=== PATIENT | male | born 2000 | race Caucasian/White ===

== ENCOUNTER 2020-07-19 20:24 | Emergency (ER) | payer OTHER ==
[~2020-07-19] VITALS: Ht 195.6 cm; Wt 90.9 kg
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
[2020-07-19 22:29] VITALS: BP 151/72
== END 2020-07-19 22:30 | disposition home or self-care (01) ==
LOC: M ED 20:24
DX: S16.1XXA Strain of muscle, fascia and tendon at neck level, initial encounter (principal); M54.9 Dorsalgia, unspecified; M25.512 Pain in left shoulder; V49.40XA Driver injured in collision with unspecified motor vehicles in traffic accident, initial encounter; F17.200 Nicotine dependence, unspecified, uncomplicated

== ENCOUNTER 2020-11-26 11:58 | Emergency (ER) | payer OTHER ==
[~2020-11-26] VITALS: Ht 195.6 cm; Wt 84.5 kg
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
[2020-11-26 13:25] VITALS: BP 109/59
== END 2020-11-26 13:36 | disposition home or self-care (01) ==
LOC: M ED 11:58
DX: S93.401A Sprain of unspecified ligament of right ankle, initial encounter (principal); Y92.9 Unspecified place or not applicable; Y93.67 Activity, basketball; Y99.9 Unspecified external cause status